=== PATIENT | male | born 1985 | race Caucasian/White ===

== ENCOUNTER 2018-05-22 23:39 | Emergency (ER) | payer MEDICARE ==
[2018-05-23 00:05] VITALS: BP 126/85
[2018-05-23] MEDS ORDERED: QUEtiapine FUMARATE 25 MG TABLET PO ONE (00:08)
[2018-05-23] MEDS ORDERED: hydrOXYzine HCL 50 MG/ML VIAL IM ONE (00:10)
--- NOTE | 2018-05-23 00:14 | ED Physician Documentation ---
General Adult - HPI Stated Complaint: Did not get to fill his meds/sores to feet/left side pain Chief Complaint: General Adult Additional Information: Patient presents to ED for medications. 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 He then states he has had LUQ pain since January. Patient past medical history of bipolar disorder. He denies suicidal or homicidal thoughts or ideation. Onset: hours (2) Timing: still present - ROS CONST: no problems EYES/ENT: none CVS/RESP: none GI/: abdominal pain (LUQ) MS/SKIN/LYMPH: none NEURO/PSYCH: denies: headache - PAST HX Past History: none Other History: none Surgeries/Procedures: none Allergies/Adverse Reactions: Allergies Allergy/AdvReac Type Severity Reaction Status Date / Time No Known Allergies Allergy Verified 05/23/18 00:05 Home Medications: Ambulatory Orders Medication Instructions Recorded Divalproex Sodium [Depakote] 500 mg PO BID 05/23/18 Hydroxyzine HCl 50 mg PO PRN PRN 05/23/18 Quetiapine Fumarate 100 mg PO HS 05/23/18 - SOCIAL HX Smoking History: non-smoker Alcohol Use: none Drug Use: none - FAMILY HX Family History: No - VITAL SIGNS Vital Signs: Vital Signs Temp Pulse Resp BP Pulse Ox 99.3 F 98 H 20 126/85 97 05/22/18 23:40 05/22/18 23:40 05/22/18 23:40 05/22/18 23:40 05/22/18 23:40 - REVIEWED ASSESSMENTS Nursing Assessment Reviewed: Yes Vitals Reviewed: Yes ED Results Lab/Radiology - Radiology Radiology Impressions: Report Submission Date: May 23, 2018 12:59:32 AM CDT Patient Study Name: MADELINE HAHN Date: May 23, 2018 12:20:36 AM CDT Modality Type: DX Gender: M Description: ABDOMEN 1VIEW : 85 Institution: [facility] Physician: JENNY SCHROEDER One view abdomen Clinical history: Left upper quadrant abdominal pain. Findings: Examination abdomen in single supine view demonstrates gas in the colon. Mildly distended small bowel loops in left upper quadrant possibly represent localized ileus. Properitoneal fat lines are preserved and the visualized visceral silhouettes are within normal limits. Psoas margins are well defined. Impression: 1. Mildly distended small bowel loops in left upper quadrant. Rule out localized ileus. Electronically signed on May 23, 2018 12:59:32 AM CDT by: Andres Oh Report Submission Date: May 23, 2018 2:07:10 AM CDT Patient Study Name: MADELINE HAHN Date: May 23, 2018 1:24:30 AM CDT Modality Type: CT\SR Gender: M Description: CT ABD PELVIS W/O CO : 85 Institution: [facility] Physician: JENNY SCHROEDER CT of the abdomen and pelvis without contrast Clinical history: Left upper quadrant abdominal pain. Technique: CT abdomen and pelvis is performed without oral or intravenous administration of contrast. Sagittal and coronal reconstructions were performed by the technologist. Findings: Visualized lung bases are clear. The liver and spleen demonstrate normal attenuation without focal defect. Gallbladder is normally distended. There is no pancreatic or adrenal abnormality. Kidneys are of normal size, shape and position. There is no retroperitoneal mass or significant adenopathy. Small umbilical hernia is present containing only fat. Appendix is visualized and is within normal limits. There is increased liquid stool in the colon. Bladder is unremarkable. There is no free fluid in the pelvis or abdomen. There is minimal motion artifact. There is no significant small bowel abnormality or small-bowel distention. Impression: 1. Negative appendix. 2. Umbilical hernia containing only fat. 3. Increased liquid stool in the colon. Electronically signed on May 23, 2018 2:07:10 AM CDT by: Andres Oh - Orders Orders: ED Orders Category Date Time Status QUEtiapine FUMARATE [Seroquel] Med 05/23/18 00:08 Once 100 mg PO NOW ONE hydrOXYzine HCL [Vistaril] Med 05/23/18 00:10 Once 50 mg IM NOW ONE General Adult Physical Exam - PHYSICAL EXAM GENERAL APPEARANCE: no distress EENT: DAVID NECK: supple RESPIRATORY: no resp distress, chest non-tender, breath sounds normal CVS: reg rate & rhythm, heart sounds normal ABDOMEN: soft, normal bowel sounds, non-tender BACK: normal inspection, no CVA tenderness SKIN: warm/dry, normal color EXTREMITIES: non-tender, no evidence of injury, no edema NEURO: oriented X3, sensation nml, other (anxious/pressured speech) Discharge Clincal Impression: Has run out of medications, Abdominal gas pain Referrals: Primary Doctor,No [Primary Care Provider] - 2 Days Additional Instructions: 1. Pick prescriptions at [facility] in the morning 2. Take home meds as previously prescribe 3. Gas X as needed for gas/abdominal pain 4. Follow up with PCP within 1 week 5. Return to the ER for new or worsening symptoms Condition: Stable Disposition: 01 HOME, SELF-CARE Decision to Admit: NO Date of Decison to Admit: 05/23/18 Decision Time: 02:12
--- NOTE | 2018-05-23 02:32 | Diagnostic Imaging Report ---
JENNY SCHROEDER [facility] [address] [facility] [address] [place], [place]. [address] Report Submission Date: May 23, 2018 2:07:10 AM CDT Patient Study Name: MADELINE HAHN Date: May 23, 2018 1:24:30 AM CDT Modality Type: CT\SR Gender: M Description: CT ABD PELVIS W/O CO : 85 Institution: [facility] Physician: JENNY SCHROEDER CT of the abdomen and pelvis without contrast Clinical history: Left upper quadrant abdominal pain. Technique: CT abdomen and pelvis is performed without oral or intravenous administration of contrast. Sagittal and coronal reconstructions were performed by the technologist. Findings: Visualized lung bases are clear. The liver and spleen demonstrate normal attenuation without focal defect. Gallbladder is normally distended. There is no pancreatic or adrenal abnormality. Kidneys are of normal size, shape and position. There is no retroperitoneal mass or significant adenopathy. Small umbilical hernia is present containing only fat. Appendix is visualized and is within normal limits. There is increased liquid stool in the colon. Bladder is unremarkable. There is no free fluid in the pelvis or abdomen. There is minimal motion artifact. There is no significant small bowel abnormality or small-bowel distention. Impression: 1. Negative appendix. 2. Umbilical hernia containing only fat. 3. Increased liquid stool in the colon. Electronically signed on May 23, 2018 2:07:10 AM CDT by: Andres REILLY
--- NOTE | 2018-05-23 02:33 | Diagnostic Imaging Report ---
JENNY SCHROEDER [facility] [address] [facility] [address] [place], [place]. [address] Report Submission Date: May 23, 2018 12:59:32 AM CDT Patient Study Name: MADELINE HAHN Date: May 23, 2018 12:20:36 AM CDT Modality Type: DX Gender: M Description: ABDOMEN 1VIEW : 85 Institution: [facility] Physician: JENNY SCHROEDER One view abdomen Clinical history: Left upper quadrant abdominal pain. Findings: Examination abdomen in single supine view demonstrates gas in the colon. Mildly distended small bowel loops in left upper quadrant possibly represent localized ileus. Properitoneal fat lines are preserved and the visualized visceral silhouettes are within normal limits. Psoas margins are well defined. Impression: 1. Mildly distended small bowel loops in left upper quadrant. Rule out localized ileus. Electronically signed on May 23, 2018 12:59:32 AM CDT by: Andres REILLY
== END 2018-05-23 02:30 | disposition home or self-care (01) ==
LOC: ED 23:39
DX: Z76.0 Encounter for issue of repeat prescription (principal); R14.1 Gas pain
CPT/HCPCS: 74018; 74176; 99283; 99285